=== PATIENT | male | born 2000 | race Caucasian/White ===

== ENCOUNTER → 2024-11-29 | Outpatient (CLI) | payer BC, OTHER, SELFPAY ==
--- NOTE | 2024-11-29 08:40 | XR_ITS ---
Examination: Foot, right, 3 views Technique: AP, oblique, lateral views foot, 3 views Date and time of exam: November 29, 2024 0843 hrs. Indications: Injury to foot 3 days ago, foot pain Findings: No acute fracture No dislocation No foreign body Impression: No acute fracture
== END | disposition home or self-care (01) ==
PROVIDERS: PCP Family Medicine; Referring Provider Nurse Practitioner Family; Visit Provider Nurse Practitioner Family
DX: S99.921A Unspecified injury of right foot, initial encounter (principal); X58.XXXA Exposure to other specified factors, initial encounter
CPT/HCPCS: 73630